=== PATIENT | female | born 1995 | race African-American/Black ===

== ENCOUNTER 2020-10-02 12:49 | Inpatient (IN) | payer MEDICAID ==
[~2020-10-02] VITALS: Ht 165.1 cm; Wt 117.9 kg
[2020-10-02 13:03] VITALS: BP 133/67; Ht 165.1 cm; Wt 117.9 kg
[2020-10-02 14:27] LABS: HEMATOCRIT 25.4 % (36.0-48.0); HEMOGLOBIN 8.5 g/dL (12-16); MCH 27.5 pg (26.0-34.0); MCHC 33.5 g/dL (31.0-37.0); MCV 82.2 fL (80.0-100.0); MEAN PLATELET VOLUME 12.2 fL (7.4-10.4); RBC 3.09 10x6/uL (4.00-5.40); RDW 15.5 % (11.5-14.5)
[2020-10-02 14:54] LABS: UDS - AMPHET NEGATIVE QUAL (NEGATIVE); UDS - BARB NEGATIVE QUAL (NEGATIVE); UDS - BENZO NEGATIVE QUAL (NEGATIVE); UDS - COCAINE NEGATIVE QUAL (NEGATIVE); UDS - OPIATE NEGATIVE QUAL (NEGATIVE); UDS - PCP NEGATIVE QUAL (NEGATIVE); UDS - THC NEGATIVE QUAL (NEGATIVE)
[2020-10-02 14:57] LABS: BACTERIA MANY HPF (NONE SEEN); BILIRUBIN NEGATIVE (NEGATIVE); KETONE NEGATIVE (NEGATIVE); NITRITE NEGATIVE (NEGATIVE); UROBILINOGEN NORMAL mg/dL (< 2)
[2020-10-02 17:38] LABS: MCH 27.6 pg (26.0-34.0); MCHC 33.4 g/dL (31.0-37.0); MCV 82.7 fL (80.0-100.0); MEAN PLATELET VOLUME 11.1 fL (7.4-10.4); RDW 15.1 % (11.5-14.5); WBC 9.5 10x3/uL (4.8-10.8)
[2020-10-02 17:39] LABS: HEMOGLOBIN 10.7 g/dL (12-16); RBC 3.87 10x6/uL (4.00-5.40)
[2020-10-03 08:13] LABS: RAPID PLASMA REAGIN Non Reactive (Non Reactive)
--- NOTE | 2020-10-03 14:15 | NUR ---
PT CALLS OUT ADULT LITERACY TEACHER LIGHT AND REQUESTS TO GET UP TO THE BATHROOM. TO ROOM, FUNDUS FIRM, U/1, SMALL RUBRA LOCHIA, NO CLOTS EXPRESSED. PT ABLE TO FULLY MOVE AND FEEL BOTH LEGS. PT HAS HAD SMALL LOOSE BM. PERIAREA CLEANSED. IV SL, EPIDURAL CATH REMOVED WITH TIP INTACT. PT ABLE TO FULLY MOVE AND FEEL BOTH LEGS, PT THEN ASSISTED OUT OF BED, TO BATHROOM. PT VOIDS PER SELF WITHOUT DIFFICULTY, AND HAS SVERAL LOOSE BM. PERICARE THEN DONE WITH WARM WATER PERIBOTTLE AND WARM WET WASHCLOTHS. PERIPADS/PT'S OWN "ALWAYS" UNDERGARMENTS ON, CLEAN GOWN ON. PT THEN TRANSFERRED AMBULATORY TO ROOM 1274, ORIENTED TO ROOM, TO BED, SR UP X2, CL/PHONE WITHIN REACH.
[2020-10-03 14:38] LABS: HEMOGLOBIN 10.6 g/dL (12-16); MCH 27.5 pg (26.0-34.0); MCHC 33.1 g/dL (31.0-37.0); MCV 83.1 fL (80.0-100.0); MEAN PLATELET VOLUME 10.6 fL (7.4-10.4); NEUTROPHIL ABS# 16.41 10x3/uL (1.56-6.13); PLATELET COUNT 245 10x3/uL (130-400); RBC 3.85 10x6/uL (4.00-5.40); RDW 15.1 % (11.5-14.5); WBC 20.4 10x3/uL (4.8-10.8)
[2020-10-03 15:05] LABS: LYMPHOCYTES 11 % (15-50); MONOCYTES 12 % (2-11); NEUTROPHILS 68 % (40-80); PLATELET ESTIMATE NORMAL
--- NOTE | 2020-10-03 20:10 | NUR ---
PT. NAILHEAD SETTER LIGHT AND REPORTS "THE NURSE FROM THE EARLIER SHIFT WAS SUPPOSED TO BRING ME SOMETHING FOR PAIN BUT I GUESS THEY FORGOT". INQUIRED WHAT PT.'S PAIN LEVEL IS AT THIS TIME AND PT. REPORTS AT "5" ON 0-10 SCALE. INSTRUCTED I WILL BRING RIGHT THERE.
--- NOTE | 2020-10-03 20:13 | NUR ---
INTRODUCED SELF TO PT. NURSE TO PROVIDE CARE THIS SHIFT. DISCUSSED CONTINUED PLAN OF CARE WITH PT. REGARDING PAIN MEDICATION ORDERED FOR A ONE TIME DOSE OF PERCOCET BUT THAT SHE ALSO HAS THE MOTRIN EVERY 6 HRS NEEDED. PT. VERBALIZES UNDERSTANDING. PT. REPORTS "CRAMPING" THAT RATES AT "5" ON 0-10 SCALE. PERCOCET 10/325 MG 1 TAB AND IBUPROFEN 600 MG 1 TAB ADMINISTERED ORALLY PER MD ORDERS AND PT. COMPLAINT OF PAIN. VITALS AND ASSESSMENT COMPLETED. SEE FLOWSHEET. RESP. ARE EVEN AND UNLABORED. BREATH SOUNDS ARE CLEAR. FUNDUS FIRM, MIDLINE, U/1 WITH LIGHT LOCHIA RUBRA NOTED. DISCUSSED SIGNS AND SYMPTOMS TO REPORT TO NURSE FAR BLEEDING IS CONCERNED. PT. REPORTS "ITS BEEN FINE SINCE I GOT UP". BOWEL SOUNDS ACTIVE X 4. PT. DENIES ANY FURTHER NEEDS OR CONCERNS AT THIS TIME. WILL CONT. TO MONITOR.
[2020-10-03 20:18] VITALS: BP 106/58
--- NOTE | 2020-10-03 21:25 | NUR ---
PT. HOLDING INFANT LOVINGLY UPON ENTERING ROOM. DENIES NEEDS OR CONCERNS AT THIS TIME. WILL CONT. TO MONITOR.
--- NOTE | 2020-10-03 23:08 | NUR ---
PT. RESTING IN RIGHT SIDE LYING POSITION. NO SIGNS OF DISTRESS NOTED. RESP. ARE EVEN AND UNLABORED. PT. NOT DISTURBED.
--- NOTE | 2020-10-04 00:20 | NUR ---
PT. RESTING IN SUPINE POSITION UPON ENTERING ROOM. NO SIGNS OF DISTRESS NOTED. RESP. ARE EVEN AND UNLABORED. PT. NOT DISTURBED AT THIS TIME.
--- NOTE | 2020-10-04 01:34 | NUR ---
PT. ENGLISH LANGUAGE ARTS TEACHER LIGHT AND REQUEST BENITEZ CRACKERS. 6 PACKAGES OF BENITEZ CRACKERS PROVIDED ALONG WITH LARGE CUP OF WATER. PT. DENIES FURTHER NEEDS.
--- NOTE | 2020-10-04 02:19 | NUR ---
PT. DIVISION ORDER TECHNICIAN LIGHT AND REQUEST NURSE TO ROOM. PT. REPORTS "CAN YOU GO AHEAD AND TAKE HER BACK TO THE NURSERY FOR ME". INSTRUCTED PT. THAT I WILL. INQUIRED WITH PT. HOW HER PAIN IS DOING AND SHE REPORTS "3 OR 4, MAYBE A 5". OFFERED PT. CARLOS A AT THIS TIME. PT. REPORTS "YEAH, ILL GO AHEAD AND TAKE IT"
[2020-10-04 02:21] VITALS: BP 108/51
--- NOTE | 2020-10-04 04:58 | NUR ---
LAB TO ROOM FOR AM DRAW ORDERED.
[2020-10-04 06:01] LABS: BASOPHILS 0.1 % (0-2); EOSINOPHILS 0.4 % (0-7); HEMATOCRIT 27.1 % (36.0-48.0); HEMOGLOBIN 8.8 g/dL (12-16); IMMATURE GRANULOCYTES 0.3 % (0-5); LYMPHOCYTE ABS# 1.91 10x3/uL (1.18-3.74); LYMPHOCYTES 11.2 % (15-50); MCH 26.8 pg (26.0-34.0); MCHC 32.5 g/dL (31.0-37.0); MCV 82.6 fL (80.0-100.0); MEAN PLATELET VOLUME 10.6 fL (7.4-10.4); MONOCYTES 11.8 % (2-11); NEUTROPHIL ABS# 12.95 10x3/uL (1.56-6.13); NEUTROPHILS 76.2 % (40-80); PLATELET COUNT 239 10x3/uL (130-400); RBC 3.28 10x6/uL (4.00-5.40); RDW 15.2 % (11.5-14.5)
--- NOTE | 2020-10-04 06:38 | NUR ---
PT. RESTING WITH EYES CLOSED IN SUPINE POSITION. NO SIGNS OF DISTRESS NOTED. REMAINS IN ROOM AT BEDSIDE.
[2020-10-04 08:00] VITALS: BP 121/60
--- NOTE | 2020-10-04 08:00 | NUR ---
PATIENT ASSESSMENT COMPLETED AT BEDSIDE. PATIENT DENIES CONCERNS OR NEEDS AT THIS TIME. LEFT HAND PIV SALINE'D LOCKED AT THIS TIME. VSS. FUNDUS FIRM AND MIDLINE, U -1. BLEEDING SCANT. PLAN OF CARE UPDATED AT PATIENTS BEDSIDE. BED IN LOW POSITION, CALL LIGHT WITHIN REACH, SIDE RAILS UP X 2.
[2020-10-04 12:03] LABS: BASOPHILS 0.1 % (0-2); EOSINOPHILS 0.5 % (0-7); HEMATOCRIT 24.4 % (36.0-48.0); HEMOGLOBIN 8.1 g/dL (12-16); IMMATURE GRANULOCYTES 0.4 % (0-5); LYMPHOCYTE ABS# 1.81 10x3/uL (1.18-3.74); LYMPHOCYTES 11.5 % (15-50); MCH 27.5 pg (26.0-34.0); MCHC 33.2 g/dL (31.0-37.0); MCV 82.7 fL (80.0-100.0); MEAN PLATELET VOLUME 10.3 fL (7.4-10.4); MONOCYTES 10.1 % (2-11); NEUTROPHIL ABS# 12.18 10x3/uL (1.56-6.13); NEUTROPHILS 77.4 % (40-80); PLATELET COUNT 212 10x3/uL (130-400); RBC 2.95 10x6/uL (4.00-5.40); RDW 15.2 % (11.5-14.5); WBC 15.7 10x3/uL (4.8-10.8)
[2020-10-04] MEDS ORDERED: FERROUS SULFAT325 MG (13:20)
[2020-10-04] MEDS ORDERED: ZOFRAN4 MG PO (13:20)
== END 2020-10-04 14:39 | disposition home or self-care (01) | DRG 807 ==
LOC: D.LD 12:49
PROVIDERS: Obstetrics & Gynecology; ADMIT Student in an Organized Health Care Education/Training Program; ATTEND Student in an Organized Health Care Education/Training Program
PROC: 10907ZC Drainage of Amniotic Fluid, Therapeutic from Products of Conception, Via Natural or Artificial Opening (ICD-10-PCS; 2020-10-02)
PROC: 3E033VJ Introduction of Other Hormone into Peripheral Vein, Percutaneous Approach (ICD-10-PCS; 2020-10-02)
PROC: 10E0XZZ Delivery of Products of Conception, External Approach (ICD-10-PCS; principal; 2020-10-03)
DX: O13.4 Gestational [pregnancy-induced] hypertension without significant proteinuria, complicating childbirth (principal); Z37.0 Single live birth; Z3A.39 39 weeks gestation of pregnancy; O99.334 Smoking (tobacco) complicating childbirth; F17.200 Nicotine dependence, unspecified, uncomplicated; O72.1 Other immediate postpartum hemorrhage; O90.81 Anemia of the puerperium; D64.9 Anemia, unspecified